=== PATIENT | female | born 2000 | race Caucasian/White ===

== ENCOUNTER → 2023-08-17 10:46 | Outpatient (REF) | payer OTHER, SELFPAY | LOC: HWRAD 10:46 | PROVIDERS: ATTENDING PHYSICIAN Nurse Practitioner Acute Care | DX: Z18.10 Retained metal fragments, unspecified (principal) | CPT/HCPCS: 72170; 73552 ==

== ENCOUNTER 2023-10-14 06:37 | Day surgery (SDC) | payer OTHER, SELFPAY ==
[2023-10-14] VITALS (8 sets, daily range): BP systolic 95–116; BP diastolic 55–72; BMI 28.6
[2023-10-14] MEDS: CELEBREX 200 MG PO (10:01)
[2023-10-14] MEDS: TYLENOL 1000 MG PO (10:01)
[2023-10-14] MEDS: NORMOSOL-R 1000 IV (10:06)
== END 2023-10-14 14:44 | disposition home or self-care (01) ==
LOC: SDS 06:37
PROVIDERS: ATTENDING PHYSICIAN Orthopaedic Surgery Hand Surgery
DX: G56.22 Lesion of ulnar nerve, left upper limb (principal)
CPT/HCPCS: 64718

== ENCOUNTER 2023-11-29 05:31 | Emergency (ER) | payer SELFPAY ==
[2023-11-29] VITALS (8 sets, daily range): BP systolic 101–116; BP diastolic 49–86
[2023-11-29 05:56] LABS: % Basophils 0.4 % (0-2); % Eosinophils 2.7 % (0-6); % Immature Granulocytes 0.3 % (0-0.5); % Lymphocytes 21.7 % (20.5-51.1); % Monocytes 9.2 % (1.7-9.3); % Neutrophils 65.7 % (42.2-75.2); Absolute Eosinophils 0.2 10^3/uL (0-0.7); Absolute Lymphocytes 1.7 10^3/uL (1.2-3.4); Absolute Monocytes 0.7 10^3/uL (0.1-0.6); Absolute Neutrophils 5.1 10^3/uL (1.4-6.5); Hematocrit 30.8 % (37.0-47.0); Hemoglobin 10.7 g/dL (12.0-16.0); Mean Corp Hgb Conc. 34.7 g/dL (33.0-37.0); Mean Corpuscular Hgb 28.9 pg (27.0-31.0); Mean Corpuscular Volume 83.2 fL (81.0-99.0); Mean Platelet Volume 11.9 fL (7.4-10.4); Nucleated Red Blood Cells % 0 %; Platelet Count 162 10^3/uL (130-400); White Blood Cell Count 7.8 10^3/uL (4.8-10.8)
--- NOTE | 2023-11-29 06:00 | ED.GENMED ---
History of Present Illness
General
Chief Complaint: Change in Mental Status
Source: ambulance crew
Exam Limitations: clinical condition
Time Seen by Provider: 11/29/23 06:00
History of Present Illness
History of Present Illness:
See MDM
Past History
Past History
ED Past Medical History: Other (Unknown)
ED Past Surgical History: Other (Unknown)
Social History
Tobacco: Other (Unknown)
Alcohol: Other (Unknown)
Phy Exam
Physical Exam
Physical Exam:
See MDM
Course
Orders/Labs/Results
Orders:
Orders
11/29/23 05:44
Electrocardiogram (*1) Urgent
Reason for Study: QTc Monitoring
EKG- Treatment ONCE
Test Result ONCE
11/29/23 05:45
Acetaminophen Urgent
Alcohol Urgent
Beta HCG Quantitative Urgent
Comment: ADD ON
Complete Blood Count/With Diff Urgent
Comprehensive Metabolic Panel Urgent
HCG, Serum Qualitative Screen Urgent
Salicylate Urgent
11/29/23 06:04
Add On- LAB Urgent
Tests Added?: HCG Quant
11/29/23 06:08
Straight cath- Treatment ONCE
11/29/23 06:18
Fentanyl, Urine Urgent
Urinalysis Reflex To Culture Urgent
Date Specimen was Collected: 11/29/23
Time Specimen was Collected: 06:17
Urine Drug Abuse Screen Urgent
Date Specimen was Collected: 11/29/23
Time Specimen was Collected: 06:17
Urine Microscopic Reflex Cult Urgent
Urine Culture Urgent
NIKUNJ Source: U
Specimen Description:
Date Specimen was Collected: 11/29/23
Time Specimen was Collected: 06:17
11/29/23 08:07
Potassium Chloride [KCl] 40 meq PO NOW STA
Abnormal Lab Results
11/29/23 11/29/23
05:45 06:18
RBC 3.70 L 10^6/uL
(4.20-5.40)
Hgb 10.7 L g/dL
(12.0-16.0)
Hct 30.8 L %
(37.0-47.0)
RDW 15.0 H %
(11.5-14.5)
MPV 11.9 H fL
(7.4-10.4)
Absolute Monos (auto) 0.7 H 10^3/uL
(0.1-0.6)
Potassium 3.2 L mmol/L
(3.5-5.1)
Carbon Dioxide 18 L mmol/L
(22-30)
AST 94 H U/L
(14-36)
ALT 57 H U/L
(0-35)
Urine Ketones 3+ A
(Negative)
Urine RBC 3-6 A /HPF
(0-2)
Urine WBC (Reflex) 11-15 A /HPF
(0-5)
Urine Bacteria (Reflex) Many A
(Negative)
Urine Albumin (Reflex) 1+ A
(Neg - Trace)
Salicylates < 1.0 L mg/dl
(2.0-20.0)
Urine Fentanyl Screen Positive H
(Negative)
Acetaminophen < 10 L ug/ml
(10-30)
U Benzodiazepines Scrn Positive H
(Negative)
Urine Cocaine Screen Positive H
(Negative)
U Marijuana (THC) Screen Positive H
(Negative)
11/29/23 05:45
11/29/23 05:45
Vital Signs
Initial and Last Documented VS:
Initial Vital Signs
BP
116/73
11/29/23 05:39
Last Documented Vital Signs
Temp Pulse Resp BP Pulse Ox
98.7 F 56 14 104/55 99
11/29/23 09:49 11/29/23 09:00 11/29/23 09:00 11/29/23 09:00 11/29/23 09:00
MDM/Problems Addressed
Differential Diagnosis Includes:
HPI and MDM Narrative:
Young female presenting by ambulance for evaluation of altered mental status. Her name and age is not known. Based on the information found in her car, she is believed to be 23 years old. Per EMS, patient had a erratic behavior at [facility]. Police
were called and she went into her car and started driving away. When police caught up to her, she refused to get out of the car which prompted the police breaking her window to extricate her. Patient came by EMS after she was given Versed and
droperidol. On arrival, patient very expectedly sleepy. She does wake up to verbal stimuli but quickly falls back to sleep. No obvious trauma noted on exam. Per EMS, patient was screaming that she is .
Physical exam
General: Lying in bed. Asleep. Wakes up to verbal stimuli but goes back to sleep
HEENT: protecting airway
Neck: appears supple
CV: No evidence of cyanosis
Resp: No accessory muscle use
Abd: Non-distended
Extremities: No deformities
Neuro: alert
Psych: Normal affect
Skin: Intact
Problems Addressed including Acute and Chronic Conditions affecting care:
1. Altered mental status
Acuity: acute
Prognosis: stable
Details: Likely drug-induced. Will obtain basic blood work to rule out metabolic encephalopathy
2.
Acuity: acute
Prognosis: stable
Details: status confirmed. Will obtain beta quant
Updates
After prolonged observation, patient now awake and alert. The nurse had made multiple calls for her rehab facility and father. The rehab facility showed up at bedside and is working on getting her placement somewhere else given the her
is now known.
We discussed OB follow-up and taking prenatals and cessation of drugs
Differential Diagnosis (but not limited to): Drug-induced psychosis, psychosis, metabolic encephalopathy
Testing considered: CT head
Drug therapy (if applicable): OTC meds, please see d/c instruction regarding Rx drugs
Amount and/or Complexity of Data Reviewed
Clinical info obtained from: EMS
External data reviewed: N/A
Labs I independently reviewed (but not limited to): UDS positive for fentanyl, benzodiazepines, cocaine and marijuana
Radiology: N/A
Pulse Ox: not hypoxic
EKG independently reviewed: Sinus bradycardia, normal axis, no STEMI
[place]: Sinus rhythm
Critical Care: N/A
Risk of Complication:
Social Determinants of health: poor social support
Discussed with other providers: N/A
Escalation of Care includes Admit/Obs: After being observed in the Emergency Department, pt stable for discharge.
Occasional wrong word or 'sound a like' substitutions may have occurred due to the inherent limitations of voice recognition software. Read the chart carefully and recognize, using context, where substitutions have occurred.
*Critical Care Note
Total Time (30-74mins, 75-104mins- exclusive of procedures): Not Applicable
ED Attending Note
-
Portions of this chart may have been created with voice recognition software.� Occasional wrong word or��sound alike� substitutions may have occurred due to the inherent limitations of voice recognition software.
Discharge Plan
Departure
Patient Disposition: Acute Rehab Facility
Date of Disposition: 11/29/23
Time of Disposition: 11:04
Discharge Problem:
Acute drug intoxication
Prescriptions:
No Action
albuterol sulfate 90 mcg/actuation Hfa Aerosol Inhaler
2 puff INHALATION BID
prazosin 1 mg Capsule
1 mg PO HS
Unobtainable
0
Referrals:
Nena Jauregui MD [Active] -
UNKNOWN - PT NOT,INTERVIEWE [Family Provider] -
Activity Restrictions/Additional Instructions:
Please start taking vitamins. You need to follow-up with the OB to receive care. Taking drugs will harm the baby. [facility] have an OB clinic.
Interventions
Interventions:
*Risk Screen - Suicide Last Done: 11/29/23 05:39
*General Assessment Last Done: 11/29/23 05:39
*Neglect/Abuse Screening Last Done: 11/29/23 05:39
ED- Fall Risk Assessment Last Done: 11/29/23 05:54
*ED COVID-19 Vaccine History Last Done: 11/29/23 05:39
ED- Neurological Assessment Last Done: 11/29/23 05:54
ED Swallowing Screen Last Done: 11/29/23 05:54
Discharge Date and Time
Print Language: SWAZI
[2023-11-29 06:04] LABS: HCG, Serum Qualitative Screen Positive
[2023-11-29 06:13] LABS: ALT (SGPT) 57 U/L (0-35); AST (SGOT) 94 U/L (14-36); Acetaminophen < 10 ug/ml (10-30); Albumin 4.4 g/dl (3.5-5.0); Alkaline Phosphatase 68 U/L (38-126); Blood Urea Nitrogen 15 mg/dl (7-17); Carbon Dioxide 18 mmol/L (22-30); Chloride 103 mmol/L (98-107); Glucose 80 mg/dl (70-99); Potassium 3.2 mmol/L (3.5-5.1); Salicylate < 1.0 mg/dl (2.0-20.0); Sodium 138 mmol/L (135-145); Total Bilirubin 0.7 mg/dl (0.2-1.3); Total Protein 6.8 g/dl (6.3-8.2); eGFR > 60.00
[2023-11-29 06:15] LABS: Alcohol None Detected
[2023-11-29 06:36] LABS: Urine Albumin 1+ (Neg - Trace); Urine Bilirubin Negative (Negative); Urine Color Amber; Urine Glucose Negative (Negative); Urine Ketone 3+ (Negative); Urine Leukocyte Negative (Negative); Urine Nitrite Negative (Negative); Urine Occult Blood Negative (Negative); Urine Specific Gravity 1.025 (<1.030); Urine Urobilinogen 1+ (Neg - 1+)
[2023-11-29 06:38] LABS: Urine Character Slightly Cloudy (Clear)
--- NOTE | 2023-11-29 06:45 | EDRN ---
patients father is listed in her other accounts [phone] Marquez Bravo [id number] to merge accounts
[2023-11-29 06:49] LABS: Amphetamines Negative (Negative); Barbiturates Negative (Negative); Benzodiazepines Positive (Negative); Buprenorphine Negative (Negative); Cocaine Positive (Negative); Marijuana Positive (Negative); Methadone Negative (Negative); Methamphetamines Negative (Negative); Opiates Negative (Negative); Phencyclidine Negative (Negative); Tricyclic Antidepressants Negative (Negative)
[2023-11-29 07:23] LABS: Urine Squamous Cell >30 /LPF (Few)
[2023-11-29 07:24] LABS: Urine Amorphous Seen; Urine Mucus Many
[2023-11-29 07:27] LABS: Urine Bacteria Many (Negative)
[2023-11-29 08:52] LABS: Fentanyl, Urine Positive (Negative)
[2023-11-29] MEDS: KCL 40 MEQ PO (09:50)
== END 2023-11-29 11:10 ==
LOC: EMR 05:31
PROVIDERS: Emergency Medicine; EMERGENCY PHYSICIAN Student in an Organized Health Care Education/Training Program
DX: O26.899 Other specified pregnancy related conditions, unspecified trimester (principal); F19.129 Other psychoactive substance abuse with intoxication, unspecified
CPT/HCPCS: 99285; 80053; 80143; 80179; 80306; 80307; 81003; 81015; 82077; 84702; 84703; 85025; 87077; 87086; 87186; 93005